=== PATIENT | female | born 1965 | race Caucasian/White ===

== ENCOUNTER 2018-11-13 08:47 | Emergency (ER) | payer BC ==
[2018-11-13 09:10] VITALS: BP 102/69
--- NOTE | 2018-11-13 09:16 | EDM.PDOC ---
ED HPI GENERAL MEDICAL PROBLEM - General Chief Complaint: Abdominal Pain Stated Complaint: REF FROM CLINIC ABDOMINAL PAIN Time Seen by Provider: 11/13/18 09:15 Source of Information: Reports: Patient History Limitations: Reports: No Limitations - History of Present Illness INITIAL COMMENTS - FREE TEXT/NARRATIVE: 23-year-old female attends the ED with diffuse abdominal pain mostly epigastric. She reports vomiting about 2200 hrs. last night before going to work. This contained a lot of bilious material and partially and I suggested food. She felt better after vomiting and decided to go to work as there was no replacements for her. Once again this morning she had a large emesis after having some cereal.. She has had no cramps or diarrhea. She has partially immunocompromise due to being on methotrexate and Plaquenil for rheumatoid arthritis for the last 20 years. She states she did have some chills and clinically he does have a low-grade fever on exam. Denies any genitourinary complaints. She states she always has a mild cough which is nonproductive. She states her was ill 2 days ago Saturday with flulike symptoms and vomiting. Onset: Sudden Onset Date: 11/12/18 Onset Time: 22:00 Duration: Hour(s):, Intermittent (Nauseous coming and going.) Location: Reports: Abdomen (Vomiting 2 since 2200 hrs. last night. No associated diarrhea.) Quality: Reports: Ache Severity: Mild (Epigastric upper abdominal pain.) Improves with: Reports: Rest Worsens with: Reports: Eating Context: Denies: Activity (Eating seemed to set off again this morning.), Exercise, Lifting, Sick Contact, Trauma, Other Associated Symptoms: Reports: Cough, Fever/Chills, Loss of Appetite, Nausea/ Vomiting. Denies: No Other Symptoms, Confusion, Chest Pain, cough w sputum, Diaphoresis, Headaches, Malaise (She states shows has a chronic nonproductive cough), Rash, Seizure, Shortness of Breath, Syncope, Weakness Treatments SISTER SUPERIOR: Reports: Other (see below) (None.) Abdomen Pain Score (Numeric/FACES): 6 - Related Data Allergies Allergy/AdvReac Type Severity Reaction Status Date / Time acetaminophen Allergy Nausea and Verified 11/13/18 08:52 [From Tylenol-Codeine #3] Vomiting codeine phosphate Allergy Nausea and Verified 11/13/18 08:52 [From Tylenol-Codeine #3] Vomiting shellfish derived Allergy Other Verified 11/13/18 08:52 shrimp Allergy Anaphylactic Verified 11/13/18 08:52 Shock Home Meds: Home Meds Folic Acid 3 mg PO DAILY 01/01/16 [History] Hydrocloraquin 200 mg PO BID 01/01/16 [History] Methotrexate 20 mg PO WEEKLY 01/01/16 [History] cycloSPORINE [Restasis] 1 drop TOP ASDIRECTED 01/01/16 [History] Acetaminophen/Caffeine [Excedrin Tension Headache Cplt] 1 tab PO DAILY 11/13/18 [History] Alendronate Sodium [Fosamax] 70 mg PO DAILY 11/13/18 [History] Cevimeline [Evoxac] 30 mg PO DAILY 11/13/18 [History] Cranberry 500 mg PO DAILY 11/13/18 [History] Fish Oil/Borage/Flax/Om3,6,9#1 [[place] 3-6-9 Complex Softgel] 400 mg PO DAILY 06/23 [History] Betzaida Root 550 mg PO DAILY 11/13/18 [History] Montelukast [Singulair] 10 mg PO DAILY 11/13/18 [History] Multivitamin [Multivitamins] 1 tab PO DAILY 11/13/18 [History] Ondansetron [Zofran] 4 mg BUCCAL Q6H PRN #5 tab 11/13/18 [Rx] guaiFENesin [Mucus Relief] 400 mg PO DAILY 11/13/18 [History] Past Medical History Respiratory History: Reports: Other (See Below) Other Respiratory History: seasonal allergies; excercise induced asthma-uses inihaler prn Gastrointestinal History: Reports: GERD Musculoskeletal History: Reports: RA (Primarily affecting her hands wrists. Minimal problems with her knees and feet.) - Past Surgical History HEENT Surgical History: Reports: Tonsillectomy Social & Family History - Living Situation & Occupation Living situation: Reports: Occupation: Employed ED ROS GENERAL - Review of Systems Review Of Systems: See Below Constitutional: Reports: Fever, Chills, Malaise (Not sure she's been running a fever. She does feel mildly warm to palpation. Nurses have a temperature 37.1.) , Weakness, Decreased Appetite HEENT: Reports: Glasses Respiratory: Reports: No Symptoms, Cough Cardiovascular: Reports: No Symptoms (Chronic nonproductive cough) Endocrine: Reports: No Symptoms GI/Abdominal: Reports: Abdominal Pain, Decreased Appetite (Epigastric abdominal discomfort.), Nausea (Vomiting 2 first time 2200 hrs. last night partially undigested food with bilious material. Vomiting this morning after trying to have some cereal for breakfast when she got off work.), Vomiting : Reports: No Symptoms Musculoskeletal: Reports: Other (Rheumatoid arthritis primarily affecting her hands and wrist.) Skin: Reports: No Symptoms Neurological: Reports: No Symptoms Psychiatric: Reports: No Symptoms Hematologic/Lymphatic: Reports: No Symptoms Immunologic: Reports: No Symptoms ED EXAM, GI/ABD - Physical Exam Exam: See Below Exam Limited By: No Limitations General Appearance: Alert, WD/WN, No Apparent Distress, Other (Abdomen feel slightly warm to palpation face is cool.) Eyes: Bilateral: Normal Appearance (No scleral icterus.) Throat/Mouth: Other Head: Atraumatic, Normocephalic Neck: Normal Inspection, Supple, Non-Tender, Full Range of Motion Respiratory/Chest: No Respiratory Distress, Lungs Clear, Normal Breath Sounds, No Accessory Muscle Use, Chest Non-Tender Cardiovascular: Normal Peripheral Pulses, Regular Rate, Rhythm, No Edema, No Gallop, No Murmur, No Rub GI/Abdominal Exam: Normal Bowel Sounds, No Organomegaly, Pelvis Stable, Tender. No: Guarding, Rigid, Rebound (Minimal tenderness epigastrium.) Back Exam: Normal Inspection, Full Range of Motion. No: CVA Tenderness (L), CVA Tenderness (R) Extremities: Normal Inspection, Other (Evidence of osteophytic changes affecting primarily her MCP joints and wrists. No ulnar drift at this time) Neurological: Alert, Oriented, CN II-XII Intact, Normal Cognition Psychiatric: Normal Affect, Normal Mood Skin Exam: Warm, Dry, Intact, Normal Color, No Rash Course - Vital Signs Last Recorded V/S: Last Vital Signs Temp 37.1 C 11/13/18 09:05 Pulse 73 11/13/18 09:05 Resp 16 11/13/18 09:05 BP 102/69 11/13/18 09:05 Pulse Ox 100 11/13/18 09:05 - Orders/Labs/Meds Orders: Active Orders 24 hr Category Date Time Status Peripheral IV Care [RC] . DIRECTED Care 11/13/18 09:22 Active Dextrose 5%-0.9% NaCl [Dextrose 5%-Normal Saline] 1,000 Med 11/13/18 09:30 Active ml IV ASDIRECTED Sodium Chloride 0.9% [Saline Flush] Med 11/13/18 09:22 Active 10 ml FLUSH ASDIRECTED PRN Peripheral IV Insertion Adult [OM.PC] Routine Oth 11/13/18 09:22 Ordered Medication Orders Dextrose/Sodium Chloride (Dextrose 5%-Normal Saline) 1,000 mls @ 999 mls/hr IV ASDIRECTED MARK Last Admin: 11/13/18 09:40 Dose: 999 mls/hr Sodium Chloride (Saline Flush) 10 ml FLUSH ASDIRECTED PRN PRN Reason: Keep Vein Open Last Admin: 11/13/18 09:36 Dose: 10 ml Labs: Laboratory Tests 11/13/18 11/13/18 11/13/18 Range/Units 09:35 09:35 09:35 WBC 4.92 (3.98-10.04) K/mm3 RBC 4.04 (3.98-5.22) M/mm3 Hgb 12.5 (11.2-15.7) gm/L Hct 38.1 (34.1-44.9) % MCV 94.3 (79.4-94.8) fl MCH 30.9 (25.6-32.2) pg MCHC 32.8 (32.2-35.5) g/dl RDW Std Deviation 43.0 (36.4-46.3) fL Plt Count 194 (182-369) K/mm3 MPV 9.2 L (9.4-12.3) fl Neutrophils % (Manual) 90 H (40-60) % Band Neutrophils % 0 (0-10) % Lymphocytes % (Manual) 6 L (20-40) % Atypical Lymphs % 0 % Monocytes % (Manual) 3 (2-10) % Eosinophils % (Manual) 0 L (0.7-5.8) % Basophils % (Manual) 1 (0.1-1.2) Platelet Estimate Adequate RBC Morph Comment Normal Sodium 137 (136-145) mEq/L Potassium 3.8 (3.5-5.1) mEq/L Chloride 100 (98-107) mEq/L Carbon Dioxide 29 (21-32) mEq/L Anion Gap 11.8 (5-15) BUN 17 (7-18) mg/dL Creatinine 0.8 (0.55-1.02) mg/dL Est Cr Clr Drug Dosing 58.98 mL/min Estimated GFR (MDRD) > 60 (>60) mL/min BUN/Creatinine Ratio 21.3 H (14-18) Glucose 107 H (74-106) mg/dL Calcium 8.4 L (8.5-10.1) mg/dL Total Bilirubin 0.5 (0.2-1.0) mg/dL AST 32 (15-37) U/L ALT 42 (14-59) U/L Alkaline Phosphatase 60 (46-116) U/L C-Reactive Protein 2.6 H* (<1.0) mg/dL Total Protein 6.9 (6.4-8.2) g/dl Albumin 3.8 (3.4-5.0) g/dl Globulin 3.1 gm/dL Albumin/Globulin Ratio 1.2 (1-2) Lipase 121 (73-393) U/L Urine Color Yellow (Yellow) Urine Appearance Clear (Clear) Urine pH 7.5 (5.0-8.0) Ur Specific [place] 1.020 (1.005-1.030) Urine Protein 1+ H (Negative) Urine Glucose (UA) Negative (Negative) Urine Ketones Negative (Negative) Urine Occult Blood Negative (Negative) Urine Nitrite Negative (Negative) Urine Bilirubin Negative (Negative) Urine Urobilinogen 0.2 (0.2-1.0) Ur Leukocyte Esterase Trace H (Negative) Urine RBC Not seen (0-5) /hpf Urine WBC 0-5 (0-5) /hpf Ur Epithelial Cells 0-5 (0-5) /hpf Ur Renal Epithelial Cell 0-5 (0-5) /hpf Urine Bacteria Few (FEW) /hpf Urine Mucus Few (FEW) /hpf Meds: Medications Generic Name Dose Route Start Last Admin Trade Name Freq PRN Reason Stop Dose Admin Dextrose/Sodium Chloride 1,000 mls @ 999 mls/hr 11/13/18 09:30 11/13/18 09:40 Dextrose 5%-Normal Saline IV 999 mls/hr ASDIRECTED MARK Administration Sodium Chloride 10 ml 11/13/18 09:22 11/13/18 09:36 Saline Flush FLUSH 10 ml ASDIRECTED PRN Administration Keep Vein Open Discontinued Medications Generic Name Dose Route Start Last Admin Trade Name Royal PRN Reason Stop Dose Admin Ondansetron HCl 4 mg 11/13/18 09:17 11/13/18 09:42 Zofran IVPUSH 11/13/18 09:18 4 mg ONETIME ONE Administration - Radiology Interpretation Free Text/Narrative:: 53-year-old female presents the ED with what appears to be acute viral gastritis. She's vomited before going to work lasted about 2200 hrs. of partially digested food and bilious material. 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 was ill with flulike illness 2 days ago. Clinically she has a low-grade fever. She is potentially mildly immunocompromised due to being on methotrexate and Plaquenil. Plan IV D5 normal saline at open. Zofran 4 mg IV. Routine labs to be collected including a serum lipase. - Re-Assessments/Exams Free Text/Narrative Re-Assessment/Exam: 11/13/18 10:29 chest x-ray reveals mildly hyperinflated lung rock bilaterally. Lungs are clear. Cardiac silhouette is normal. 11/13/18 10:30 Labs reveal a normal white count at 4.9 to differential pending. Hemoglobin is 12.5 with hematocrit of 38.1. Platelet count is 194,000. Urinalysis shows 1+ proteinuria trace leukocyte esterase. The micro-however shows no pus cells or red cells. 11/13/18 11:53 Labs reveal a normal white count at 4.92. Differential shows 90% neutrophils however with no bands hemoglobin is 12.5 hematocrit of 38.1. Bilateral common 194,000. Sodium 137 with potassium 3.8 chloride 100 with micro- 29. Anion gap is 11.8. BUNs 17 with a creatinine of 0.8. GFR is greater than 60. Glucose is 107 with a calcium of 8.4. Liver function is normal. C-reactive protein is mildly elevated at 2.6. Total protein is 6.9 with a albumin fraction of 3.8. Lipase is normal at 121. Urinalysis shows 1+ proteinuria and trace of leukocyte esterase but the micro-shows no pus cells. Therefore appears that she has a straightforward viral gastritis with nausea and vomiting. Be sent home with Zofran 4 mg sublingually every 4-6 hours needed for nausea relief. She is to stay on clear fluids such as Gatorade/Powerade and then advance to crackers later today. This is tolerated she may advance to a broth-type soup. Departure - Departure Time of Disposition: 11:54 Disposition: Home, Self-Care 01 Condition: Fair Clinical Impression: Viral gastritis Nausea and vomiting Qualifiers: Vomiting type: bilious vomiting Qualified Code(s): R11.14 - Bilious vomiting - Discharge Information *PRESCRIPTION DRUG MONITORING PROGRAM REVIEWED*: Not Applicable *COPY OF PRESCRIPTION DRUG MONITORING REPORT IN PATIENT RUY: Not Applicable Prescriptions: Ondansetron [Zofran] 4 mg BUCCAL Q6H PRN #5 tab PRN Reason: nausea or vomiting Instructions: Gastritis, Adult, [id number] Referrals: Hao Jimenes MD [Primary Care Provider] - Forms: ED Department Discharge, ED Return to Work/School Form Additional Instructions: Evaluation the emergency room today in regards to acute viral gastritis with nausea and vomiting twice in the last 14 hours. Lab tests did not reveal any significant abnormalities. Treated with a liter of IV fluids and medication intravenously to arrest vomiting. Suggest treatment at home to be sleep. Clear fluids such as Gatorade or Powerade ideally 5 ounces sipped per hour. If this is tolerated may have some Jell-O. If this is tolerated may have some soda crackers or and/or some jam on bread. May advance to clear fluids soup such as broth soup or turkey rice/chicken noodle. Suggest no dairy products today until you know for sure you're not going to develop diarrhea. Suggest off work tonight until your back to eating normally. Usually the vomiting component of this illness is been lasting 16-20 hours. - My Orders Last 24 Hours: My Active Orders 11/13/18 09:22 Peripheral IV Care [RC] . DIRECTED Sodium Chloride 0.9% [Saline Flush] 10 ml FLUSH ASDIRECTED PRN Peripheral IV Insertion Adult [OM.PC] Routine 11/13/18 09:30 Dextrose 5%-0.9% NaCl [Dextrose 5%-Normal Saline] 1,000 ml IV ASDIRECTED - Assessment/Plan Last 24 Hours: My Active Orders 11/13/18 09:22 Peripheral IV Care [RC] . DIRECTED Sodium Chloride 0.9% [Saline Flush] 10 ml FLUSH ASDIRECTED PRN Peripheral IV Insertion Adult [OM.PC] Routine 11/13/18 09:30 Dextrose 5%-0.9% NaCl [Dextrose 5%-Normal Saline] 1,000 ml IV ASDIRECTED
[2018-11-13] MEDS ORDERED: Ondansetron 4 MG/2 ML SDV IVPUSH ONE (09:17)
[2018-11-13] MEDS ORDERED: Sodium Chloride 0.9% 10 ML Syringe FLUSH PRN (09:22)
[2018-11-13] MEDS ORDERED: Dextrose 5%-0.9% NaCl 1,000 ML IV SCH (09:30)
--- NOTE | 2018-11-13 10:11 | CR ---
Chest: Portable view of the chest was obtained. Comparison: No prior chest x-ray. Heart size and mediastinum are normal. Lungs are clear with no acute parenchymal change. Minimal scoliosis is noted. Impression: 1. Incidental finding. Nothing acute is seen on portable chest x-ray. Diagnostic code #2
== END 2018-11-13 12:30 | disposition home or self-care (01) ==
LOC: JD.ED 08:47
DX: A08.4 Viral intestinal infection, unspecified (principal); K21.9 Gastro-esophageal reflux disease without esophagitis; Z88.8 Allergy status to other drugs, medicaments and biological substances; Z91.013 Allergy to seafood; Z88.5 Allergy status to narcotic agent; Z79.899 Other long term (current) drug therapy
CPT/HCPCS: 36415; 71045; 80053; 81001; 83690; 85007; 85027; 86140; 96361; 96374; 99284; J2405; J7042

== ENCOUNTER 2018-12-13 11:57 | Emergency (ER) | payer BC ==
[2018-12-13 12:13] VITALS: BP 108/59
--- NOTE | 2018-12-13 12:42 | EDM.PDOC ---
ED HPI GENERAL MEDICAL PROBLEM - General Chief Complaint: Gastrointestinal Problem Stated Complaint: COMPLICATIONS WITH BOWEL MOVEMENT/NAUSEA Time Seen by Provider: 12/13/18 12:13 Source of Information: Reports: Patient, RN Notes Reviewed History Limitations: Reports: No Limitations - History of Present Illness INITIAL COMMENTS - FREE TEXT/NARRATIVE: The patient states that she suffers from chronic constipation. She states that she takes magnesium and bisacodyl daily, plus magnesium citrate on an as-needed basis. Nevertheless, she states that she has not had a good bowel movement in about a month. She added MiraLAX this past Saturday or Saturday, 12/07/2018 or 2018. She states that she has since had a small bowel movement on Saturday, 12/10, after drinking magnesium citrate. The patient states that she feels like she has fecal impaction or "stuck" since , 12/11/2018. The patient states that she is scheduled for a colonoscopy this coming Saturday, , per her PCP. She is supposed to start a clear liquid diet tonight, then start drinking GoLYTELY tomorrow. The patient states that she has not previously had a gastroenterologic evaluation. She states that she has tried a glycerin suppository in the past, but has never tried an enema. The patient's PCP is Dr. Hao Jimenes. Her Transportation Engineer is Dr. Olivier Garcia. Abdomen Pain Score (Numeric/FACES): 7 - Related Data Allergies Allergy/AdvReac Type Severity Reaction Status Date / Time acetaminophen Allergy Nausea and Verified 12/13/18 12:04 [From Tylenol-Codeine #3] Vomiting codeine phosphate Allergy Nausea and Verified 12/13/18 12:04 [From Tylenol-Codeine #3] Vomiting shellfish derived Allergy Other Verified 12/13/18 12:04 shrimp Allergy Anaphylactic Verified 12/13/18 12:04 Shock Home Meds: Home Meds Folic Acid 3 mg PO DAILY 01/01/16 [History] Hydrocloraquin 200 mg PO BID 01/01/16 [History] Methotrexate 20 mg PO WEEKLY 01/01/16 [History] cycloSPORINE [Restasis] 1 drop TOP ASDIRECTED 01/01/16 [History] Acetaminophen/Caffeine [Excedrin Tension Headache Cplt] 1 tab PO DAILY 11/13/18 [History] Alendronate Sodium [Fosamax] 70 mg PO WEEKLY 11/13/18 [History] Cevimeline [Evoxac] 30 mg PO DAILY 11/13/18 [History] Cranberry 500 mg PO DAILY 11/13/18 [History] Fish Oil/Borage/Flax/Om3,6,9#1 [[place] 3-6-9 Complex Softgel] 400 mg PO DAILY 06/23 [History] Betzaida Root 550 mg PO DAILY 11/13/18 [History] Montelukast [Singulair] 10 mg PO DAILY 11/13/18 [History] Multivitamin [Multivitamins] 1 tab PO DAILY 11/13/18 [History] Ondansetron [Zofran] 4 mg BUCCAL Q6H PRN #5 tab 11/13/18 [Rx] guaiFENesin [Mucus Relief] 400 mg PO DAILY 11/13/18 [History] Past Medical History HEENT History: Reports: Allergic Rhinitis Other HEENT History: wear glasses. dry eyes Respiratory History: Reports: Asthma (exercise-induced - not formally evaluated) Gastrointestinal History: Reports: GERD (untreated) NEW [employer] MECH[employer]IC History: Reports: Immunologic History: Reports: Other (See Below) (RA. Sjogren syndrome.) - Infectious Disease History Infectious Disease History: Reports: Other (See Below) (West Nile virus 2006) - Past Surgical History HEENT Surgical History: Reports: Tonsillectomy Social & Family History - Tobacco Use Smoking Status *Q: Never Smoker Second Hand Smoke Exposure: No - Caffeine Use Caffeine Use: Reports: Tea - Alcohol Use Alcohol Use History: Yes Alcohol Use Frequency: Rarely - Recreational Drug Use Recreational Drug Use: No - Living Situation & Occupation Living situation: Reports: , with Spouse Occupation: Employed (RN at [employer]) ED ROS GENERAL - Review of Systems Review Of Systems: ROS reveals no pertinent complaints other than HPI. GI/Abdominal: Reports: Constipation (chronic) ED EXAM, GI/ABD - Physical Exam Exam: See Below Exam Limited By: No Limitations General Appearance: Alert, No Apparent Distress, Thin Eyes: Bilateral: Normal Appearance, EOMI Ears: Normal External Exam, Hearing Grossly Normal Nose: Normal Inspection Throat/Mouth: Normal Inspection, Normal Lips, Normal Voice, No Airway Compromise Head: Atraumatic, Normocephalic Neck: Normal Inspection, Full Range of Motion Respiratory/Chest: No Respiratory Distress, Lungs Clear, Normal Breath Sounds, No Accessory Muscle Use Cardiovascular: Normal Peripheral Pulses, Regular Rate, Rhythm, No Edema, No Gallop, No JVD, No Murmur, No Rub GI/Abdominal Exam: Normal Bowel Sounds, Soft, Non-Tender, No Organomegaly, No Distention, No Abnormal Bruit, No Mass (Female) Exam: Deferred Rectal (Female) Exam: Normal Exam, Normal Rectal Tone, Other (Soft brown stool in rectum). No: Fecal Impaction, Hemorrhoids Back Exam: Normal Inspection, Full Range of Motion, NT Extremities: Normal Inspection, Normal Range of Motion, No Pedal Edema, Normal Capillary Refill Neurological: Alert, Oriented, Normal Cognition, No Motor/Sensory Deficits Psychiatric: Normal Affect Skin Exam: Warm, Dry, Intact, Normal Color, No Rash Course - Vital Signs Last Recorded V/S: Last Vital Signs Temp 36.9 C 12/13/18 12:07 Pulse 71 12/13/18 12:07 Resp 12 12/13/18 12:07 BP 108/59 L 12/13/18 12:07 Pulse Ox 100 12/13/18 12:07 - Re-Assessments/Exams Free Text/Narrative Re-Assessment/Exam: 12/13/18 13:00 KUB appears to demonstrate a nonspecific bowel gas pattern. No significant amount of constipation is seen. There appears to be redundant colon. Formal read per the Radiologist pending. 12/13/18 13:10 X-ray results discussed with the patient. I can't explain why the patient is feeling constipated. A redundant colon puts the patient at increased risk for constipation, but she does not appear to actually be constipated at this time. I recommended that she proceed with the bowel prep for colonoscopy tomorrow, as directed, then undergo the colonoscopy on Saturday, as scheduled. 12/13/18 13:31 The patient requested a note to be off work tomorrow. Departure - Departure Time of Disposition: 13:18 Disposition: Home, Self-Care 01 Condition: Good Clinical Impression: Perceived constipation - Discharge Information *PRESCRIPTION DRUG MONITORING PROGRAM REVIEWED*: Not Applicable *COPY OF PRESCRIPTION DRUG MONITORING REPORT IN PATIENT RUY: Not Applicable Referrals: Hao Jimenes MD [Primary Care Provider] - Olivier Garcia MD [Ordering Only Provider] - Forms: ED Department Discharge, ED Return to Work/School Form Additional Instructions: You were seen in the emergency room for feeling constipated. Workup in the ER included a x-ray of your abdomen, which appear to show a redundant colon, as explained, but no significant amount of stool or constipation. Further, on examination, no impacted or hard stool was found. We recommend that you continue with the bowel prep tomorrow, then undergo the colonoscopy on 12/15/2018, as scheduled. If any other problems, please do not hesitate to return to the ER.
--- NOTE | 2018-12-15 06:35 | CR ---
Abdomen: Supine view of the abdomen was obtained. Comparison: No prior abdominal x-ray. Slight increased stool within the colon is noted. Bowel gas pattern is otherwise unremarkable. No abnormal calcifications or soft tissue abnormality is seen. Bony structures are unremarkable. Impression: 1. Slight increased stool within the colon. 2. Supine abdominal x-ray is otherwise unremarkable. Diagnostic code #2
== END 2018-12-13 13:30 | disposition home or self-care (01) ==
LOC: JD.ED 11:57
DX: K59.09 Other constipation (principal); J45.909 Unspecified asthma, uncomplicated; Z88.8 Allergy status to other drugs, medicaments and biological substances; Z88.5 Allergy status to narcotic agent; Z91.013 Allergy to seafood; Z79.899 Other long term (current) drug therapy
CPT/HCPCS: 74018; 74018-26; 99282; 99283-25

== ENCOUNTER 2022-12-23 08:25 | Emergency (ER) | payer BC ==
[2022-12-23] MEDS ORDERED: Metoclopramide 10 MG/2 ML SDV IVPUSH ONE (09:17)
[2022-12-23] MEDS ORDERED: diphenhydrAMINE 50 MG/ML SDV IVPUSH ONE (09:19)
[2022-12-23] MEDS ORDERED: Ketorolac 30 MG/ML SDV IVPUSH ONE (09:19)
[2022-12-23] MEDS ORDERED: Iopamidol 612 MG/ML 100 ML Bottle IVPUSH ONE (09:27)
[2022-12-23] MEDS: Sodium Chloride 0.9% 10 ML Syringe FLUSH PRN ×2 (09:45→10:05)
[2022-12-23 10:11] LABS: BASOPHILS ABSOLUTE AUTO 0.01 K/mm3 (0.01-0.08); BASOPHILS PERCENT AUTO 0.4 % (0.1-1.2); EOSINOPHILS PERCENT AUTO 0 (0.7-5.8); HEMATOCRIT 25.8 % (34.1-44.9); HEMOGLOBIN 8.7 gm/dl (11.2-15.7); LYMPHOCYTES ABSOLUTE AUTO 0.44 K/mm3 (1.18-3.74); LYMPHOCYTES PERCENT AUTO 18.6 % (19.3-51.7); MEAN CORPUSCULAR HEMOGLOBIN 30.1 pg (25.6-32.2); MEAN CORPUSCULAR HGB CONC 33.7 g/dl (32.2-35.5); MEAN CORPUSCULAR VOLUME 89.3 fl (79.4-94.8); MEAN PLATELET VOLUME 8.7 fl (9.4-12.3); MONOCYTES ABSOLUTE AUTO 0.24 K/mm3 (0.24-0.36); MONOCYTES PERCENT AUTO 10.2 % (4.7-12.5); NEUTROPHILS ABSOLUTE AUTO 1.67 K/mm3 (1.56-6.13); NEUTROPHILS PERCENT AUTO 70.8 % (34.0-71.1); PLATELET COUNT,PLT 122 K/mm3 (182-369); RED BLOOD CELL COUNT 2.89 M/mm3 (3.98-5.22)
[2022-12-23 10:13] LABS: WHITE BLOOD CELL COUNT,WBC 2.36 K/mm3 (3.98-10.04)
[2022-12-23 10:25] LABS: INR 1.13
[2022-12-23 10:26] LABS: PTT,PARTIAL THROMBOPLSTIN TIME 31.6 SECONDS (21.7-31.4)
[2022-12-23 10:37] LABS: A/G RATIO 1.3 (1-2); ALBUMIN 3.3 g/dl (3.4-5.0); ANION GAP 11.1 (5-15); BILIRUBIN TOTAL 0.4 mg/dL (0.2-1.0); BUN/CREATININE RATIO 17.5 (14-18); CREATININE 0.8 mg/dL (0.55-1.02); EST CRCL DRUG DOSING (CG) 55.47 mL/min; MAGNESIUM 1.8 mg/dL (1.8-2.4); POTASSIUM,K 4.1 mEq/L (3.5-5.1); PROTEIN TOTAL,TP 5.9 g/dl (6.4-8.2)
[2022-12-23 13:48] VITALS: BP 104/62; PULSE 70
== END 2022-12-23 13:05 | disposition home or self-care (01) ==
LOC: JD.ED 08:25
DX: D61.818 Other pancytopenia (principal); R51.9 Headache, unspecified; K59.09 Other constipation; K21.9 Gastro-esophageal reflux disease without esophagitis; J45.909 Unspecified asthma, uncomplicated; Z88.8 Allergy status to other drugs, medicaments and biological substances; Z88.5 Allergy status to narcotic agent; Z91.013 Allergy to seafood
CPT/HCPCS: 36415; 74177; 80053; 83605; 83690; 83735; 83880; 84484; 85025; 85610; 85730; 93005; 96374; 96375; 99284; J1200; J1885; J2765; J3490; Q9967; 93010